=== PATIENT | female | born 1940 | race Caucasian/White ===

== ENCOUNTER → 2024-06-18 10:06 | Outpatient (REF) | payer OTHER, SELFPAY | LOC: RAD 10:06 | PROVIDERS: ATTENDING PHYSICIAN Internal Medicine Hematology & Oncology; FAMILY PHYSICIAN Family Medicine Adult Medicine; OTHER PHYSICIAN Internal Medicine Cardiovascular Disease; REFERRING PHYSICIAN Physician Assistant | DX: C50.912 Malignant neoplasm of unspecified site of left female breast (principal); D75.1 Secondary polycythemia; M81.0 Age-related osteoporosis without current pathological fracture | CPT/HCPCS: 71260; 74177; Q9967 ==